=== PATIENT | female | born 1960 | race African-American/Black ===

== ENCOUNTER 2017-11-24 16:01 | Emergency (ER) | payer MEDICAID ==
[~2017-11-24] VITALS: Ht 167.6 cm; Wt 100.0 kg
[2017-11-24] MEDS ORDERED: IBUPROFEN 800MG TABLET PO ONE (17:15)
[2017-11-24 18:18] VITALS: BP 111/77
== END 2017-11-24 18:21 | disposition home or self-care (01) ==
LOC: ER 16:55
DX: M51.36 Other intervertebral disc degeneration, lumbar region (principal); M25.562 Pain in left knee; V49.88XA Car occupant (driver) (passenger) injured in other specified transport accidents, initial encounter; Y93.89 Activity, other specified; Y92.89 Other specified places as the place of occurrence of the external cause; Y99.8 Other external cause status
CPT/HCPCS: 72100; 99284

== ENCOUNTER 2018-03-15 23:41 | Emergency (ER) | payer MEDICAID ==
[~2018-03-15] VITALS: Ht 167.6 cm; Wt 105.0 kg
[2018-03-16 02:35] LABS: CLARITY URINE CLOUDY (CLEAR); COLOR URINE YELLOW (YELLOW); KETONES URINE NEGATIVE (NEGATIVE); LEUKOCYTE ESTERASE URINE 3+ (NEGATIVE); NITRITE URINE POSITIVE (NEGATIVE); OCCULT BLOOD URINE 1+ (NEGATIVE); PH URINE 5.5 (4.5-8.0); PROTEIN URINE NEGATIVE (NEGATIVE); SPECIFIC GRAVITY URINE 1.013 (1.005-1.030); UROBILINOGEN URINE 0.2 E.U./dL (0.2-1.0)
[2018-03-16 03:15] VITALS: BP 136/78
== END 2018-03-16 03:16 | disposition home or self-care (01) ==
LOC: ER 23:41
DX: N39.0 Urinary tract infection, site not specified (principal); Z90.49 Acquired absence of other specified parts of digestive tract; Z98.890 Other specified postprocedural states
CPT/HCPCS: 82962; 87077; 87186; 99283

== ENCOUNTER 2018-08-22 13:54 | Emergency (ER) | payer MEDICAID ==
[~2018-08-22] VITALS: Ht 167.6 cm; Wt 114.0 kg
[2018-08-22 17:59] LABS: CLARITY URINE CLEAR (CLEAR); COLOR URINE YELLOW (YELLOW); KETONES URINE NEGATIVE (NEGATIVE); LEUKOCYTE ESTERASE URINE 2+ (NEGATIVE); NITRITE URINE NEGATIVE (NEGATIVE); OCCULT BLOOD URINE 1+ (NEGATIVE); PH URINE 6.5 (4.5-8.0); PROTEIN URINE NEGATIVE (NEGATIVE); UROBILINOGEN URINE 0.2 E.U./dL (0.2-1.0)
[2018-08-22] MEDS: CEFTRIAXONE SODIUM 250 MG/VIAL IM SCH (20:11)
[2018-08-22] MEDS: AZITHROMYCIN 500 MG TABLET PO SCH (20:11)
[2018-08-22 20:21] VITALS: BP 150/68
== END 2018-08-22 20:22 | disposition home or self-care (01) ==
LOC: ER 13:54
DX: A59.9 Trichomoniasis, unspecified (principal); N39.0 Urinary tract infection, site not specified; N76.0 Acute vaginitis; Z90.49 Acquired absence of other specified parts of digestive tract
CPT/HCPCS: 81003; 87077; 87086; 87186; 87210; 96372; 99283; J0696; Z7610

== ENCOUNTER 2019-05-19 03:20 | Emergency (ER) | payer MEDICAID ==
[~2019-05-19] VITALS: Ht 167.6 cm; Wt 101.5 kg
[2019-05-19 06:16] LABS: BASOPHILS % 1.1 % (0.0-2.0); EOSINOPHILS % 0.8 % (0.0-5.0); HEMATOCRIT. 33.2 % (36.0-48.0); HEMOGLOBIN. 11.1 g/dL (12.0-16.0); LYMPHOCYTES % 24.1 % (20.0-50.0); MEAN CORPUSCULAR HEMOGLOBIN 27.6 pg (28.0-32.0); MEAN CORPUSCULAR VOLUME 82.3 fL (81.0-99.0); MEAN PLATELET VOLUME 8.4 fl (7.4-10.4); MONOCYTES % 8.9 % (2.0-8.0); NEUTROPHILS % 65.1 % (40.0-76.0); PLATELET 272 x1000/uL (130-400); RED BLOOD CELL COUNT 4.04 mill/uL (4.2-5.4); RED CELL DISTRIBUTION WIDTH 14.2 % (11.6-14.6)
[2019-05-19 06:22] LABS: CHLORIDE 109 mEq/L (98-107)
[2019-05-19] MEDS ORDERED: ONDANSETRON 4MG ODT PO ONE (06:30)
[2019-05-19] MEDS ORDERED: HYDROCODONE/ACETAMINOPHEN 5/325MG TABLET PO ONE (06:30)
[2019-05-19 09:31] VITALS: BP 93/60
== END 2019-05-19 10:23 | disposition home or self-care (01) ==
LOC: EDUNIT# 03:20 → ER 03:20
DX: R07.89 Other chest pain (principal); J06.9 Acute upper respiratory infection, unspecified; M79.601 Pain in right arm; Z90.49 Acquired absence of other specified parts of digestive tract
CPT/HCPCS: 29125; 36415; 71045; 73110; 73130; 80053; 83880; 84484; 85025; 93005; 99285; Q0162

== ENCOUNTER 2019-11-27 22:43 | Emergency (ER) | payer MEDICAID ==
[~2019-11-27] VITALS: Ht 167.6 cm; Wt 104.0 kg
[2019-11-27 22:45] VITALS: BP 127/71
[2019-11-27] MEDS ORDERED: KETOROLAC 30MG/ML VIAL IM ONE (23:15)
== END 2019-11-28 01:18 | disposition home or self-care (01) ==
LOC: ER 22:43
DX: M25.552 Pain in left hip (principal); Z88.8 Allergy status to other drugs, medicaments and biological substances
CPT/HCPCS: 73502; 96372; 99283; J1885

== ENCOUNTER 2020-02-01 01:46 | Emergency (ER) | payer MEDICAID ==
[~2020-02-01] VITALS: Ht 167.6 cm; Wt 105.0 kg
[2020-02-01 02:03] VITALS: BP 120/69
[2020-02-01] MEDS ORDERED: KETOROLAC 30MG/ML VIAL IM ONE (02:30)
[2020-02-01] MEDS ORDERED: CYCLOBENZAPRINE 10MG TABLET PO ONE (02:30)
== END 2020-02-01 02:58 | disposition home or self-care (01) ==
LOC: ER 01:46
DX: M25.552 Pain in left hip (principal); Z88.8 Allergy status to other drugs, medicaments and biological substances; Z90.49 Acquired absence of other specified parts of digestive tract
CPT/HCPCS: 96372; 99283; J1885

== ENCOUNTER 2020-10-03 16:10 | Emergency (ER) | payer MEDICAID ==
[~2020-10-03] VITALS: Ht 167.6 cm; Wt 110.0 kg
[2020-10-03 21:45] LABS: BASOPHILS % 0.9 % (0.0-2.0); EOSINOPHILS % 2.2 % (0.0-5.0); HEMATOCRIT. 36.4 % (36.0-48.0); HEMOGLOBIN. 12.3 g/dL (12.0-16.0); LYMPHOCYTES % 36.4 % (20.0-50.0); MEAN CORPUSCULAR HEMOGLOBIN 27.5 pg (28.0-32.0); MEAN CORPUSCULAR VOLUME 81.2 fL (81.0-99.0); MEAN PLATELET VOLUME 8.3 fl (7.4-10.4); MONOCYTES % 12.5 % (2.0-8.0); PLATELET 230 x1000/uL (130-400); RED BLOOD CELL COUNT 4.48 mill/uL (4.2-5.4); RED CELL DISTRIBUTION WIDTH 15.2 % (11.6-14.6)
[2020-10-03 21:52] LABS: CHLORIDE 111 mEq/L (98-107)
[2020-10-03] MEDS ORDERED: SODIUM CHLORIDE 0.9% 1,000 ML IV ONE (22:00)
[2020-10-03 23:37] LABS: CLARITY URINE CLOUDY (CLEAR); COLOR URINE RED (YELLOW); KETONES URINE NEGATIVE (NEGATIVE); LEUKOCYTE ESTERASE URINE 3+ (NEGATIVE); NITRITE URINE NEGATIVE (NEGATIVE); OCCULT BLOOD URINE 3+ (NEGATIVE); PH URINE 6.5 (4.5-8.0); PROTEIN URINE 2+ (NEGATIVE); SPECIFIC GRAVITY URINE 1.011 (1.005-1.030); UROBILINOGEN URINE 0.2 E.U./dL (0.2-1.0)
[2020-10-03 23:41] VITALS: BP 137/64
[2020-10-03] MEDS ORDERED: LEVOFLOXACIN 250MG TABLET PO ONE (23:45)
[2020-10-03] MEDS ORDERED: CIPR500T5 MT (23:56)
[2020-10-04] MEDS ORDERED: LEVOFLOXACIN 250MG TABLET PO SCH (00:15)
== END 2020-10-04 00:32 | disposition home or self-care (01) ==
LOC: ER 17:03
DX: R42 Dizziness and giddiness (principal); R31.9 Hematuria, unspecified; I10 Essential (primary) hypertension; Z90.49 Acquired absence of other specified parts of digestive tract; Z98.890 Other specified postprocedural states
CPT/HCPCS: 36415; 74176; 80048; 81003; 85025; 93005; 96360; 99285; J7030; Z7610

== ENCOUNTER 2020-11-10 11:09 | Emergency (ER) | payer MEDICAID ==
[~2020-11-10] VITALS: Ht 167.6 cm; Wt 109.0 kg
[~2020-11-10 11:09] MED LIST: CIPR500T5 MT
[2020-11-10] MEDS ORDERED: IBUPROFEN 600MG TABLET PO ONE (15:30)
[2020-11-10 16:43] LABS: CHLORIDE 106 mEq/L (98-107)
[2020-11-10] MEDS ORDERED: RIVAROXABAN 15 MG TABLET PO SCH (17:00)
[2020-11-10] MEDS ORDERED: XAR15 MT (17:00)
[2020-11-10 17:23] VITALS: BP 145/78
== END 2020-11-10 17:24 | disposition home or self-care (01) ==
LOC: ER 11:09
DX: I82.412 Acute embolism and thrombosis of left femoral vein (principal); I49.9 Cardiac arrhythmia, unspecified
CPT/HCPCS: 36415; 80048; 93005; 93971; 99285; Z7610

== ENCOUNTER 2020-11-13 17:39 | Inpatient (IN) | payer MEDICAID ==
[~2020-11-13] VITALS: Ht 167.6 cm; Wt 102.5 kg
[~2020-11-13 17:39] MED LIST changes: +XAR15 MT
[2020-11-13 21:29] LABS: BASOPHILS % 0.6 % (0.0-2.0); HEMATOCRIT. 34.4 % (36.0-48.0); HEMOGLOBIN. 11.5 g/dL (12.0-16.0); LYMPHOCYTES % 36.5 % (20.0-50.0); MEAN CORPUSCULAR HEMOGLOBIN 27.2 pg (28.0-32.0); MEAN CORPUSCULAR VOLUME 81.2 fL (81.0-99.0); MEAN PLATELET VOLUME 9.2 fl (7.4-10.4); MONOCYTES % 8.8 % (2.0-8.0); NEUTROPHILS % 52.1 % (40.0-76.0); PLATELET 141 x1000/uL (130-400); RED BLOOD CELL COUNT 4.24 mill/uL (4.2-5.4); RED CELL DISTRIBUTION WIDTH 15.1 % (11.6-14.6)
[2020-11-13 21:33] LABS: CHLORIDE 106 mEq/L (98-107)
[2020-11-13 22:56] LABS: INR 1.3; PARTIAL THROMBOPLASTIN TIME 28.9 sec (23.4-31.0); PROTHROMBIN TIME 13.7 sec (9.6-11.0)
[2020-11-13] MEDS ORDERED: IOHEXOL-350 100 ML BOTTLE ONE (23:21)
[2020-11-14] VITALS (11 sets, daily range): BP systolic 101–134; BP diastolic 36–88
[2020-11-14] MEDS ORDERED: HEPARIN 5000 UNITS/ML VIAL IV SCH ×2 (00:15)
[2020-11-14] MEDS ORDERED: HEPARIN 25,000 UNITS PREMIX 250 ML IV PRN (00:15)
[2020-11-14] MEDS ORDERED: HEPARIN 5000 UNITS/ML VIAL IV PRN ×4 (00:15→00:20)
[2020-11-14] MEDS ORDERED: POTASSIUM CHLORIDE INJ 40 MEQ in DEXT 5% WATER 250 ML IV SCH (03:00)
[2020-11-14 08:49] LABS: CLARITY URINE CLOUDY (CLEAR); KETONES URINE TRACE (NEGATIVE); LEUKOCYTE ESTERASE URINE 2+ (NEGATIVE); NITRITE URINE NEGATIVE (NEGATIVE); OCCULT BLOOD URINE 3+ (NEGATIVE); PROTEIN URINE 3+ (NEGATIVE); SPECIFIC GRAVITY URINE 1.019 (1.005-1.030); UROBILINOGEN URINE 0.2 E.U./dL (0.2-1.0)
[2020-11-14 08:50] LABS: COLOR URINE BLOODY (YELLOW)
[2020-11-14] MEDS ORDERED: ONDANSETRON HCL 4MG/2ML INJ IV PRN (09:30)
[2020-11-14] MEDS ORDERED: ACETAMINOPHEN 325MG TABLET PO PRN (09:30)
[2020-11-14] MEDS ORDERED: CEFTRIAXONE 1 G PREMIX 50 ML IV SCH ×2 (09:30→10:00)
[2020-11-14 12:04] LABS: BASOPHILS % 1.3 % (0.0-2.0); EOSINOPHILS % 1.8 % (0.0-5.0); HEMATOCRIT. 33.4 % (36.0-48.0); HEMOGLOBIN. 11.1 g/dL (12.0-16.0); LYMPHOCYTES % 32.1 % (20.0-50.0); MEAN CORPUSCULAR HEMOGLOBIN 27.2 pg (28.0-32.0); MEAN CORPUSCULAR VOLUME 81.8 fL (81.0-99.0); MEAN PLATELET VOLUME 8.5 fl (7.4-10.4); NEUTROPHILS % 56.8 % (40.0-76.0); PLATELET 151 x1000/uL (130-400); RED BLOOD CELL COUNT 4.08 mill/uL (4.2-5.4); RED CELL DISTRIBUTION WIDTH 15.4 % (11.6-14.6)
[2020-11-14 12:13] LABS: CHLORIDE 111 mEq/L (98-107)
[2020-11-14 12:29] LABS: INR 1.3; PARTIAL THROMBOPLASTIN TIME 32.2 sec (23.4-31.0)
[2020-11-14] MEDS: CEFTRIAXONE 1,000 MG in DEXTROSE 5% WATER 50 ML IV SCH (14:56)
[2020-11-14] MEDS: ENOXAPARIN 100MG/ML SYR SUBCUT SCH (18:11)
[2020-11-15] VITALS (15 sets, daily range): BP systolic 102–122; BP diastolic 59–74
[2020-11-15 05:46] LABS: BASOPHILS % 0.9 % (0.0-2.0); EOSINOPHILS % 2.5 % (0.0-5.0); HEMOGLOBIN. 10.5 g/dL (12.0-16.0); LYMPHOCYTES % 29.9 % (20.0-50.0); MEAN CORPUSCULAR HEMOGLOBIN 26.8 pg (28.0-32.0); MEAN CORPUSCULAR VOLUME 82.1 fL (81.0-99.0); MEAN PLATELET VOLUME 8.8 fl (7.4-10.4); NEUTROPHILS % 57.7 % (40.0-76.0); PLATELET 149 x1000/uL (130-400); RED BLOOD CELL COUNT 3.89 mill/uL (4.2-5.4); RED CELL DISTRIBUTION WIDTH 15.2 % (11.6-14.6)
[2020-11-15] MEDS: ENOXAPARIN 100MG/ML SYR SUBCUT SCH ×2 (05:56→18:14)
[2020-11-15 06:09] LABS: CHLORIDE 109 mEq/L (98-107)
[2020-11-15] MEDS ORDERED: POTASSIUM CHLORIDE 20MEQ TABLET SR PO NR (08:45)
[2020-11-15] MEDS: CEFTRIAXONE 1,000 MG in DEXTROSE 5% WATER 50 ML IV SCH (14:28)
[2020-11-16] VITALS (10 sets, daily range): BP systolic 100–130; BP diastolic 59–75
[2020-11-16] MEDS: ENOXAPARIN 100MG/ML SYR SUBCUT SCH (05:50)
[2020-11-16 06:42] LABS: INR 1.1; PROTHROMBIN TIME 11.9 sec (9.6-11.0)
[2020-11-16] MEDS ORDERED: LEVO500T89 MT (12:57)
[2020-11-16] MEDS: CEFTRIAXONE 1,000 MG in DEXTROSE 5% WATER 50 ML IV SCH (13:29)
== END 2020-11-16 16:51 | disposition home or self-care (01) | DRG 720 ==
LOC: ER 17:39 → EDBEDREQSVC 11-14 10:29 → MICUSO 11-14 10:40 → 3WST 11-14 11:52
PROVIDERS: ADMIT Internal Medicine; ATTEND Internal Medicine
DX: A41.9 Sepsis, unspecified organism (principal); J96.01 Acute respiratory failure with hypoxia; I21.A1 Myocardial infarction type 2; I26.94 Multiple subsegmental thrombotic pulmonary emboli without acute cor pulmonale; E44.1 Mild protein-calorie malnutrition; E87.6 Hypokalemia; N39.0 Urinary tract infection, site not specified; N20.0 Calculus of kidney; I36.1 Nonrheumatic tricuspid (valve) insufficiency; I82.412 Acute embolism and thrombosis of left femoral vein; R31.0 Gross hematuria; I25.2 Old myocardial infarction; Z79.01 Long term (current) use of anticoagulants; Z86.711 Personal history of pulmonary embolism; Z86.718 Personal history of other venous thrombosis and embolism; Z87.442 Personal history of urinary calculi; Z90.49 Acquired absence of other specified parts of digestive tract; Z79.2 Long term (current) use of antibiotics; Z79.899 Other long term (current) drug therapy; Z68.36 Body mass index [BMI] 36.0-36.9, adult
CPT/HCPCS: 36415; 71045; 71275; 74177; 80048; 80053; 81003; 83880; 84484; 85025; 93005; 93306; 99285; J0696; J1644; J1650; J3480; J7060; Q9967

== ENCOUNTER 2021-01-30 10:11 | Emergency (ER) | payer MEDICAID ==
[~2021-01-30] VITALS: Ht 167.6 cm; Wt 101.0 kg
[~2021-01-30 10:11] MED LIST changes: +LEVO500T89 MT
[2021-01-30] MEDS ORDERED: SODIUM CHLORIDE 0.9% 1,000 ML IV ONE (10:45)
[2021-01-30 10:46] LABS: BASOPHILS % 0.8 % (0.0-2.0); EOSINOPHILS % 1.4 % (0.0-5.0); HEMOGLOBIN. 9.7 g/dL (12.0-16.0); LYMPHOCYTES % 15.8 % (20.0-50.0); MEAN CORPUSCULAR HEMOGLOBIN 25.7 pg (28.0-32.0); MEAN CORPUSCULAR VOLUME 82.1 fL (81.0-99.0); MEAN PLATELET VOLUME 8.3 fl (7.4-10.4); MONOCYTES % 10.2 % (2.0-8.0); NEUTROPHILS % 71.8 % (40.0-76.0); PLATELET 293 x1000/uL (130-400); RED BLOOD CELL COUNT 3.78 mill/uL (4.2-5.4); RED CELL DISTRIBUTION WIDTH 16.5 % (11.6-14.6)
[2021-01-30 10:54] LABS: INR 1.3
[2021-01-30 10:55] LABS: CHLORIDE 112 mEq/L (98-107)
[2021-01-30 11:05] LABS: CLARITY URINE CLOUDY (CLEAR); COLOR URINE YELLOW (YELLOW); KETONES URINE NEGATIVE (NEGATIVE); LEUKOCYTE ESTERASE URINE 3+ (NEGATIVE); NITRITE URINE NEGATIVE (NEGATIVE); OCCULT BLOOD URINE 3+ (NEGATIVE); PROTEIN URINE 1+ (NEGATIVE); SPECIFIC GRAVITY URINE 1.005 (1.005-1.030); UROBILINOGEN URINE 0.2 E.U./dL (0.2-1.0)
[2021-01-30] MEDS ORDERED: CEFTRIAXONE 1 G PREMIX 50 ML IV ONE (12:45)
[2021-01-30] MEDS ORDERED: CEPH500C2 MT (13:44)
[2021-01-30 14:17] VITALS: BP 142/68
== END 2021-01-30 14:25 | disposition home or self-care (01) ==
LOC: ER 10:21
DX: N39.0 Urinary tract infection, site not specified (principal); N20.0 Calculus of kidney; D64.9 Anemia, unspecified; Z90.49 Acquired absence of other specified parts of digestive tract; Z98.51 Tubal ligation status; Z86.718 Personal history of other venous thrombosis and embolism; Z87.442 Personal history of urinary calculi; Z98.890 Other specified postprocedural states
CPT/HCPCS: 36415; 74176; 80053; 81003; 83690; 85025; 85610; 87086; 96361; 96365; 99284; J0696; J7030; Z7610; A4315

== ENCOUNTER 2021-02-08 22:54 | Inpatient (IN) | payer MEDICAID ==
[~2021-02-08] VITALS: Ht 167.6 cm; Wt 99.8 kg
[~2021-02-08 22:54] MED LIST changes: +CEPH500C2 MT
[2021-02-09 00:31] LABS: CLARITY URINE CLOUDY (CLEAR); COLOR URINE RED (YELLOW); KETONES URINE NEGATIVE (NEGATIVE); LEUKOCYTE ESTERASE URINE 3+ (NEGATIVE); NITRITE URINE NEGATIVE (NEGATIVE); OCCULT BLOOD URINE 3+ (NEGATIVE); PROTEIN URINE 2+ (NEGATIVE); SPECIFIC GRAVITY URINE 1.008 (1.005-1.030); UROBILINOGEN URINE 0.2 E.U./dL (0.2-1.0)
[2021-02-09 00:38] LABS: BASOPHILS % 0.6 % (0.0-2.0); EOSINOPHILS % 1.4 % (0.0-5.0); HEMATOCRIT. 28.6 % (36.0-48.0); HEMOGLOBIN. 9.3 g/dL (12.0-16.0); LYMPHOCYTES % 30.7 % (20.0-50.0); MEAN CORPUSCULAR HEMOGLOBIN 25.6 pg (28.0-32.0); MEAN CORPUSCULAR VOLUME 78.6 fL (81.0-99.0); MEAN PLATELET VOLUME 8.1 fl (7.4-10.4); MONOCYTES % 8.9 % (2.0-8.0); NEUTROPHILS % 58.4 % (40.0-76.0); PLATELET 425 x1000/uL (130-400); RED BLOOD CELL COUNT 3.64 mill/uL (4.2-5.4); RED CELL DISTRIBUTION WIDTH 17.3 % (11.6-14.6)
[2021-02-09 00:43] LABS: CHLORIDE 110 mEq/L (98-107)
[2021-02-09] MEDS ORDERED: CEFTRIAXONE 1 G PREMIX 50 ML IV SCH ×2 (01:30→09:00)
[2021-02-09] MEDS ORDERED: POTASSIUM CHLORIDE 20MEQ TABLET SR PO NR (09:00)
[2021-02-09] MEDS ORDERED: ACETAMINOPHEN 325MG TABLET PO PRN (09:00)
[2021-02-09] MEDS ORDERED: ONDANSETRON HCL 4MG/2ML INJ IV PRN (09:00)
[2021-02-09] MEDS ORDERED: KETOROLAC 15MG/ML VIAL IV PRN (09:00)
[2021-02-09 12:00] VITALS: BP 110/78
[2021-02-09 12:32] VITALS: BP 115/56
[2021-02-09 16:00] VITALS: BP 100/67
[2021-02-09] MEDS: RIVAROXABAN 20 MG TABLET PO SCH (17:00)
[2021-02-09 20:00] VITALS: BP 159/57
[2021-02-10] VITALS: BP 119/62
[2021-02-10] MEDS ORDERED: CEFTRIAXONE 1,000 MG in DEXTROSE 5% WATER 50 ML IV SCH (01:00)
[2021-02-10 04:00] VITALS: BP 112/64
[2021-02-10 07:19] LABS: BASOPHILS % 0.5 % (0.0-2.0); EOSINOPHILS % 2.2 % (0.0-5.0); HEMATOCRIT. 30.3 % (36.0-48.0); HEMOGLOBIN. 9.8 g/dL (12.0-16.0); LYMPHOCYTES % 30.7 % (20.0-50.0); MEAN CORPUSCULAR HEMOGLOBIN 25.4 pg (28.0-32.0); MEAN CORPUSCULAR VOLUME 78.6 fL (81.0-99.0); MEAN PLATELET VOLUME 8.1 fl (7.4-10.4); MONOCYTES % 9.6 % (2.0-8.0); PLATELET 388 x1000/uL (130-400); RED BLOOD CELL COUNT 3.86 mill/uL (4.2-5.4); RED CELL DISTRIBUTION WIDTH 16.5 % (11.6-14.6)
[2021-02-10 07:40] LABS: CHLORIDE 111 mEq/L (98-107)
[2021-02-10 08:00] VITALS: BP 120/64
[2021-02-10 12:00] VITALS: BP 113/80
[2021-02-10 16:00] VITALS: BP 108/53
[2021-02-10] MEDS ORDERED: LEVO500T89 MT (16:43)
[2021-02-10 16:45] VITALS: BP 107/57
[2021-02-10] MEDS: RIVAROXABAN 20 MG TABLET PO SCH (16:50)
== END 2021-02-10 18:42 | disposition home or self-care (01) | DRG 463 ==
LOC: ER 22:54 → MICUSO 02-09 03:28 → EDBEDREQTM 02-09 03:45 → EDBEDREQ 02-09 03:45 → 7WST 02-09 11:16 → 6WST 02-10 10:30
PROVIDERS: ADMIT Internal Medicine; ATTEND Internal Medicine
DX: N13.6 Pyonephrosis (principal); E44.1 Mild protein-calorie malnutrition; E87.8 Other disorders of electrolyte and fluid balance, not elsewhere classified; E87.6 Hypokalemia; D64.9 Anemia, unspecified; Z86.718 Personal history of other venous thrombosis and embolism; Z86.711 Personal history of pulmonary embolism; Z87.440 Personal history of urinary (tract) infections; Z87.442 Personal history of urinary calculi; Z68.35 Body mass index [BMI] 35.0-35.9, adult; Z79.01 Long term (current) use of anticoagulants; Z98.891 History of uterine scar from previous surgery
CPT/HCPCS: 36415; 74176; 80048; 80053; 81003; 85025; 99285; J0696; J7060

== ENCOUNTER 2021-04-13 20:25 | Emergency (ER) | payer MEDICAID ==
[~2021-04-13] VITALS: Ht 167.6 cm; Wt 98.0 kg
[~2021-04-13 20:25] MED LIST changes: -CEPH500C2 MT; -CIPR500T5 MT
[2021-04-13 23:37] LABS: CLARITY URINE CLOUDY (CLEAR); COLOR URINE RED (YELLOW); KETONES URINE NEGATIVE (NEGATIVE); LEUKOCYTE ESTERASE URINE 3+ (NEGATIVE); NITRITE URINE NEGATIVE (NEGATIVE); OCCULT BLOOD URINE 3+ (NEGATIVE); PH URINE 6.5 (4.5-8.0); PROTEIN URINE 2+ (NEGATIVE); UROBILINOGEN URINE 0.2 E.U./dL (0.2-1.0)
[2021-04-14 01:02] LABS: BASOPHILS % 0.7 % (0.0-2.0); EOSINOPHILS % 0.8 % (0.0-5.0); HEMATOCRIT. 31.2 % (36.0-48.0); LYMPHOCYTES % 16.4 % (20.0-50.0); MEAN CORPUSCULAR HEMOGLOBIN 23.6 pg (28.0-32.0); MEAN CORPUSCULAR VOLUME 73.9 fL (81.0-99.0); MEAN PLATELET VOLUME 8.1 fl (7.4-10.4); MONOCYTES % 10.1 % (2.0-8.0); PLATELET 305 x1000/uL (130-400); RED BLOOD CELL COUNT 4.23 mill/uL (4.2-5.4); RED CELL DISTRIBUTION WIDTH 17.1 % (11.6-14.6)
[2021-04-14 01:21] LABS: CHLORIDE 110 mEq/L (98-107)
[2021-04-14] MEDS ORDERED: T3 PO (02:59)
[2021-04-14] MEDS ORDERED: IBUP-2029 MT (02:59)
[2021-04-14] MEDS ORDERED: CEPH500C2 MT (02:59)
[2021-04-14 03:30] VITALS: BP 115/72
== END 2021-04-14 03:34 | disposition home or self-care (01) ==
LOC: ER 20:25
DX: N23 Unspecified renal colic (principal); N30.90 Cystitis, unspecified without hematuria; Z86.711 Personal history of pulmonary embolism; Z86.718 Personal history of other venous thrombosis and embolism; Z87.442 Personal history of urinary calculi; Z98.890 Other specified postprocedural states
CPT/HCPCS: 36415; 74176; 80053; 81003; 85025; 87086; 99284; Z7610

== ENCOUNTER 2021-11-10 15:32 | Emergency (ER) | payer MEDICAID, MEDICARE ==
[~2021-11-10] VITALS: Ht 167.6 cm; Wt 82.0 kg
[~2021-11-10 15:32] MED LIST changes: +CEPH500C2 MT; +IBUP-2029 MT; -LEVO500T89 MT; +LEVO500T90 MT; +RIVA20TA PO; +T3 PO
[2021-11-10 20:27] LABS: CLARITY URINE CLEAR (CLEAR); COLOR URINE YELLOW (YELLOW); KETONES URINE NEGATIVE (NEGATIVE); LEUKOCYTE ESTERASE URINE 2+ (NEGATIVE); NITRITE URINE NEGATIVE (NEGATIVE); OCCULT BLOOD URINE 1+ (NEGATIVE); PH URINE 6.5 (4.5-8.0); PROTEIN URINE NEGATIVE (NEGATIVE); SPECIFIC GRAVITY URINE 1.007 (1.005-1.030); UROBILINOGEN URINE 0.2 E.U./dL (0.2-1.0)
[2021-11-10] MEDS ORDERED: CEFTRIAXONE 1 G PREMIX 50 ML IV ONE (21:30)
[2021-11-10 22:35] LABS: BASOPHILS % 0.5 % (0.0-2.0); EOSINOPHILS % 1.5 % (0.0-5.0); HEMATOCRIT. 36.7 % (36.0-48.0); HEMOGLOBIN. 12.1 g/dL (12.0-16.0); LYMPHOCYTES % 38.1 % (20.0-50.0); MEAN CORPUSCULAR HEMOGLOBIN 26.8 pg (28.0-32.0); MEAN CORPUSCULAR VOLUME 81.5 fL (81.0-99.0); MEAN PLATELET VOLUME 8.5 fl (7.4-10.4); MONOCYTES % 8.5 % (2.0-8.0); NEUTROPHILS % 51.4 % (40.0-76.0); PLATELET 212 x1000/uL (130-400); RED BLOOD CELL COUNT 4.51 mill/uL (4.2-5.4); RED CELL DISTRIBUTION WIDTH 15.4 % (11.6-14.6)
[2021-11-10 22:42] LABS: CHLORIDE 109 mEq/L (98-107)
[2021-11-10] MEDS ORDERED: NITR-87 MT (23:00)
[2021-11-10] MEDS ORDERED: PHEN-815 MT (23:01)
[2021-11-11 01:50] VITALS: BP 135/75
== END 2021-11-11 01:53 | disposition home or self-care (01) ==
LOC: ER 15:32
DX: N39.0 Urinary tract infection, site not specified (principal); Z86.718 Personal history of other venous thrombosis and embolism; Z87.442 Personal history of urinary calculi; Z98.890 Other specified postprocedural states
CPT/HCPCS: 36415; 74176; 80053; 81003; 85025; 96374; 99284; J0696

== ENCOUNTER 2021-11-16 02:26 | Emergency (ER) | payer MEDICARE ==
[~2021-11-16] VITALS: Ht 167.6 cm; Wt 102.0 kg
[~2021-11-16 02:26] MED LIST changes: +NITR-87 MT; +PHEN-815 MT
[2021-11-16 02:48] VITALS: BP 143/75
[2021-11-16 05:00] LABS: CLARITY URINE CLEAR (CLEAR); COLOR URINE YELLOW (YELLOW); KETONES URINE NEGATIVE (NEGATIVE); LEUKOCYTE ESTERASE URINE 3+ (NEGATIVE); NITRITE URINE NEGATIVE (NEGATIVE); OCCULT BLOOD URINE 3+ (NEGATIVE); PH URINE 6.5 (4.5-8.0); PROTEIN URINE 1+ (NEGATIVE); SPECIFIC GRAVITY URINE 1.011 (1.005-1.030); UROBILINOGEN URINE 0.2 E.U./dL (0.2-1.0)
[2021-11-16] MEDS ORDERED: SULF1TAB48 MT (05:24)
== END 2021-11-16 06:05 | disposition home or self-care (01) ==
LOC: ER 02:26
DX: N39.0 Urinary tract infection, site not specified (principal); Z79.899 Other long term (current) drug therapy; Z98.890 Other specified postprocedural states
CPT/HCPCS: 81003; 99283

== ENCOUNTER 2021-11-22 16:08 | Emergency (ER) | payer MEDICARE ==
[~2021-11-22] VITALS: Ht 167.6 cm; Wt 105.0 kg
[~2021-11-22 16:08] MED LIST changes: +SULF1TAB48 MT
[2021-11-22 16:09] VITALS: BP 172/82
[2021-11-22] MEDS ORDERED: DEXAMETHASONE 10 MG/ML VIAL IM ONE (16:30)
[2021-11-22] MEDS ORDERED: FAMOTIDINE 20MG TABLET PO ONE (16:30)
[2021-11-22] MEDS ORDERED: DIPHENHYDRAMINE 50MG CAPSULE PO ONE (16:30)
== END 2021-11-22 18:36 | disposition left against medical advice (07) ==
LOC: ER 16:08
DX: L29.9 Pruritus, unspecified (principal); T36.8X5A Adverse effect of other systemic antibiotics, initial encounter; Y92.018 Other place in single-family (private) house as the place of occurrence of the external cause
CPT/HCPCS: 96372; 99283; J1100; Q0163

== ENCOUNTER 2021-11-29 22:52 | Emergency (ER) | payer MEDICARE ==
[~2021-11-29] VITALS: Ht 167.6 cm; Wt 102.0 kg
[2021-11-30] MEDS ORDERED: ACETAMINOPHEN WITH CODEINE 300/30MG TABLET PO ONE (00:45)
[2021-11-30 00:56] VITALS: BP 139/79
[2021-11-30] MEDS ORDERED: T3 PO (01:46)
[2021-11-30] MEDS ORDERED: IBUP-2029 MT (01:46)
[2021-11-30] MEDS ORDERED: IBUP-2028 MT (11:24)
== END 2021-11-30 02:17 | disposition home or self-care (01) ==
LOC: ER 22:52
DX: S82.892A Other fracture of left lower leg, initial encounter for closed fracture (principal); W18.39XA Other fall on same level, initial encounter; Y93.89 Activity, other specified; Y92.89 Other specified places as the place of occurrence of the external cause; Y99.8 Other external cause status; D64.9 Anemia, unspecified; Z87.440 Personal history of urinary (tract) infections; Z98.890 Other specified postprocedural states; Z79.899 Other long term (current) drug therapy
CPT/HCPCS: 29515; 73610; 73630; 99284

== ENCOUNTER 2021-11-30 09:12 | Emergency (ER) | payer MEDICAID, MEDICARE ==
[~2021-11-30] VITALS: Ht 167.6 cm; Wt 100.0 kg
[2021-11-30 09:21] VITALS: BP 132/67
[2021-11-30] MEDS ORDERED: IBUPROFEN 400MG TABLET PO ONE (10:15)
[2021-11-30] MEDS ORDERED: IBUP-2028 MT (11:24)
== END 2021-11-30 11:54 | disposition home or self-care (01) ==
LOC: ER 09:12
DX: M25.572 Pain in left ankle and joints of left foot (principal); M79.662 Pain in left lower leg
CPT/HCPCS: 93970; 99284

== ENCOUNTER 2021-12-04 06:25 | Emergency (ER) | payer MEDICAID ==
[~2021-12-04] VITALS: Ht 167.6 cm; Wt 102.0 kg
[~2021-12-04 06:25] MED LIST changes: +IBUP-2028 MT
[2021-12-04 06:35] VITALS: BP 145/62
[2021-12-04] MEDS ORDERED: TOPUD MT (06:55)
== END 2021-12-04 07:10 | disposition home or self-care (01) ==
LOC: ER 06:25
DX: S93.492A Sprain of other ligament of left ankle, initial encounter (principal); D64.9 Anemia, unspecified; X58.XXXA Exposure to other specified factors, initial encounter; Y93.89 Activity, other specified; Y92.9 Unspecified place or not applicable; Z88.2 Allergy status to sulfonamides; Z88.8 Allergy status to other drugs, medicaments and biological substances; Z86.711 Personal history of pulmonary embolism; Z86.718 Personal history of other venous thrombosis and embolism; Z87.440 Personal history of urinary (tract) infections; Z87.442 Personal history of urinary calculi; Z98.890 Other specified postprocedural states
CPT/HCPCS: 99282

== ENCOUNTER 2022-01-30 09:05 | Emergency (ER) | payer MEDICAID, OTHER ==
[~2022-01-30] VITALS: Ht 167.6 cm; Wt 105.0 kg
[~2022-01-30 09:05] MED LIST changes: +LEVO-65 MT; -LEVO500T90 MT; +TOPUD MT
[2022-01-30 10:49] LABS: BASOPHILS % 0.8 % (0.0-2.0); EOSINOPHILS % 1.5 % (0.0-5.0); HEMATOCRIT. 37.9 % (36.0-48.0); HEMOGLOBIN. 12.3 g/dL (12.0-16.0); LYMPHOCYTES % 29.5 % (20.0-50.0); MEAN CORPUSCULAR HEMOGLOBIN 27.3 pg (28.0-32.0); MEAN CORPUSCULAR VOLUME 83.9 fL (81.0-99.0); MEAN PLATELET VOLUME 8.3 fl (7.4-10.4); MONOCYTES % 11.3 % (2.0-8.0); NEUTROPHILS % 56.9 % (40.0-76.0); PLATELET 214 x1000/uL (130-400); RED BLOOD CELL COUNT 4.52 mill/uL (4.2-5.4); RED CELL DISTRIBUTION WIDTH 14.7 % (11.6-14.6)
[2022-01-30 11:00] LABS: CHLORIDE 111 mEq/L (98-107)
[2022-01-30] MEDS ORDERED: ASPIRIN 325MG EC TABLET PO ONE (13:45)
[2022-01-30] MEDS ORDERED: ENOXAPARIN 120MG/0.8ML SYR SUBCUT ONE (13:45)
[2022-01-30] MEDS ORDERED: IOHEXOL-350 100 ML BOTTLE ONE (14:21)
[2022-01-30 15:24] VITALS: BP 129/71
== END 2022-01-30 15:39 | disposition home or self-care (01) ==
LOC: ER 09:15
DX: R00.2 Palpitations (principal); R07.89 Other chest pain; D64.9 Anemia, unspecified; Z87.440 Personal history of urinary (tract) infections; Z98.890 Other specified postprocedural states; Z79.899 Other long term (current) drug therapy; Z88.2 Allergy status to sulfonamides
CPT/HCPCS: 36415; 71045; 71275; 80053; 83880; 84484; 85025; 85379; 93005; 96372; 99285; J1650; Q9967

== ENCOUNTER 2022-06-08 23:57 | Emergency (ER) | payer MEDICAID, OTHER ==
[~2022-06-08] VITALS: Ht 167.6 cm; Wt 109.0 kg
[2022-06-09 03:40] LABS: BASOPHILS % 0.7 % (0.0-2.0); EOSINOPHILS % 1.3 % (0.0-5.0); HEMATOCRIT. 40.5 % (36.0-48.0); HEMOGLOBIN. 13.1 g/dL (12.0-16.0); LYMPHOCYTES % 36.7 % (20.0-50.0); MEAN CORPUSCULAR HEMOGLOBIN 27.5 pg (28.0-32.0); MEAN CORPUSCULAR VOLUME 85.1 fL (81.0-99.0); MEAN PLATELET VOLUME 9.1 fl (7.4-10.4); MONOCYTES % 9.2 % (2.0-8.0); NEUTROPHILS % 52.1 % (40.0-76.0); PLATELET 189 x1000/uL (130-400); RED BLOOD CELL COUNT 4.76 mill/uL (4.2-5.4); RED CELL DISTRIBUTION WIDTH 15.2 % (11.6-14.6)
[2022-06-09] MEDS ORDERED: ACETAMINOPHEN 325MG TABLET PO ONE (03:45)
[2022-06-09] MEDS ORDERED: MECLIZINE 12.5MG TABLET PO ONE (03:45)
[2022-06-09] MEDS ORDERED: SODIUM CHLORIDE 0.9% 500 ML IV ONE (03:45)
[2022-06-09 03:47] LABS: CHLORIDE 110 mEq/L (98-107)
[2022-06-09 03:51] LABS: *AMPHETAMINES SCREEN URINE NEGATIVE (NEGATIVE); *BARBITURATES SCREEN URINE NEGATIVE (NEGATIVE); *BENZODIAZEPINES SCREEN URINE NEGATIVE (NEGATIVE); *COCAINE SCREEN URINE NEGATIVE (NEGATIVE); CANNABINOID URINE SCREEN NEGATIVE (NEGATIVE); METHADONE URINE SCREEN NEGATIVE (NEGATIVE); OPIATES URINE SCREEN NEGATIVE (NEGATIVE); PHENCYCLIDINE URINE SCREEN NEGATIVE (NEGATIVE)
[2022-06-09 03:58] LABS: ETHANOL BLOOD < 10 mg/dL
[2022-06-09] MEDS ORDERED: ASPIRIN 325MG EC TABLET PO NR (05:00)
[2022-06-09 08:37] VITALS: BP 124/79
== END 2022-06-09 08:30 | disposition left against medical advice (07) ==
LOC: ER 23:57
DX: R07.9 Chest pain, unspecified (principal); R00.2 Palpitations; R42 Dizziness and giddiness; I10 Essential (primary) hypertension; D64.9 Anemia, unspecified; Z88.2 Allergy status to sulfonamides; Z88.8 Allergy status to other drugs, medicaments and biological substances; Z90.49 Acquired absence of other specified parts of digestive tract; Z98.51 Tubal ligation status; Z86.711 Personal history of pulmonary embolism; Z86.718 Personal history of other venous thrombosis and embolism; Z87.440 Personal history of urinary (tract) infections; Z87.442 Personal history of urinary calculi
CPT/HCPCS: 36415; 71045; 80053; 80305; 80320; 83690; 83880; 84484; 85025; 93005; 96360; 99285; J7040; Z7610; J8597; G0480

== ENCOUNTER 2023-07-03 12:50 | Emergency (ER) | payer OTHER ==
[~2023-07-03] VITALS: Ht 167.6 cm; Wt 104.8 kg
[2023-07-03 13:09] VITALS: BP 148/74; RESP 16; TEMP 98.3; O2SAT 100
[2023-07-03 13:18] VITALS: PULSE 87
[2023-07-03] MEDS ORDERED: P50 MT (15:05)
[2023-07-03] MEDS ORDERED: ACYC200C31 MT (15:05)
== END 2023-07-03 17:03 | disposition home or self-care (01) ==
LOC: ER 13:04
DX: G51.0 Bell's palsy (principal); D64.9 Anemia, unspecified; Z87.440 Personal history of urinary (tract) infections; Z98.51 Tubal ligation status; Z90.49 Acquired absence of other specified parts of digestive tract
CPT/HCPCS: 99281; 99283

== ENCOUNTER 2024-04-12 23:05 | Emergency (ER) | payer MEDICAID, MEDICARE ==
[~2024-04-12] VITALS: Ht 167.6 cm; Wt 105.0 kg
[~2024-04-12 23:05] MED LIST changes: +ACYC200C31 MT; +P50 MT
[2024-04-12 23:26] VITALS: O2SAT 98
[2024-04-13] MEDS ORDERED: ONDA4TAB50 MT (00:42)
[2024-04-13] MEDS ORDERED: TOPUD MT (00:42)
[2024-04-13] MEDS ORDERED: DIPH-1091 MT (00:42)
[2024-04-13] MEDS: FAMOTIDINE 20MG TABLET PO NR (02:32)
[2024-04-13] MEDS: ONDANSETRON 4MG ODT PO NR (02:32)
[2024-04-13] MEDS: MAGNESIUM/ALUMINUM HYDROXIDE/SIMETHICONE 30ML UDC PO NR (02:32)
[2024-04-13] MEDS: FAMOTIDINE 20MG TABLET PO ONE (02:32)
[2024-04-13] MEDS: ONDANSETRON 4MG ODT PO ONE (02:32)
[2024-04-13] MEDS: MAGNESIUM/ALUMINUM HYDROXIDE/SIMETHICONE 30ML UDC PO ONE (02:33)
[2024-04-13 02:35] VITALS: BP 121/66; PULSE 84; RESP 18; TEMP 36.66960; O2SAT 99
== END 2024-04-13 02:35 | disposition home or self-care (01) ==
LOC: ER 23:05
DX: R19.7 Diarrhea, unspecified (principal); R11.0 Nausea; Z88.2 Allergy status to sulfonamides; Z88.1 Allergy status to other antibiotic agents; Z79.01 Long term (current) use of anticoagulants
CPT/HCPCS: 99284; Q0162

== ENCOUNTER 2024-08-19 22:39 | Emergency (ER) | payer MEDICAID, MEDICARE ==
[~2024-08-19] VITALS: Ht 167.6 cm; Wt 110.0 kg
[~2024-08-19 22:39] MED LIST changes: +DIPH-1091 MT; +ONDA4TAB50 MT
[2024-08-19 23:34] VITALS: O2SAT 100
[2024-08-20 00:47] LABS: CLARITY URINE CLEAR (CLEAR); COLOR URINE YELLOW (YELLOW); GLUCOSE URINE NEGATIVE (NEGATIVE); KETONES URINE NEGATIVE (NEGATIVE); LEUKOCYTE ESTERASE URINE 2+ (NEGATIVE); NITRITE URINE NEGATIVE (NEGATIVE); OCCULT BLOOD URINE 1+ (NEGATIVE); PH URINE 6.5 (4.5-8.0); PROTEIN URINE NEGATIVE (NEGATIVE); SPECIFIC GRAVITY URINE 1.011 (1.005-1.030); UROBILINOGEN URINE 0.2 E.U./dL (0.2-1.0)
[2024-08-20] MEDS ORDERED: CEFP200T13 MT (01:20)
[2024-08-20 01:40] VITALS: BP 146/63; PULSE 56; RESP 16; TEMP 36.9; O2SAT 100
[2024-08-20 01:58] LABS: BACTERIA URINE TRACE; SQUAMOUS EPITHELIAL CELL URINE FEW /lpf (RARE/1+)
== END 2024-08-20 01:53 | disposition home or self-care (01) ==
LOC: ER 22:39
DX: N39.0 Urinary tract infection, site not specified (principal); Z79.01 Long term (current) use of anticoagulants; Z79.899 Other long term (current) drug therapy; Z88.1 Allergy status to other antibiotic agents; Z88.2 Allergy status to sulfonamides
CPT/HCPCS: 81003; 99283